=== PATIENT | female | born 1945 | race Caucasian/White ===

== ENCOUNTER 2019-06-04 12:34 | Observation (INO) | payer OTHER ==
[~2019-06-04] VITALS: Ht 154.9 cm; Wt 114.8 kg
[~2019-06-04 12:34] MED LIST: LISI-209 PO; PRO40 PO
[2019-06-04 12:46] VITALS: BP_SYST 110
--- NOTE | 2019-06-04 13:30 | NUR ---
Patient to ER bed 6 to gown for evaluation. Side rails up. Report given to Ara MANRIQUE.
--- NOTE | 2019-06-04 13:40 | NUR ---
pt arrived via BLS for worsening lower back pain. Pt does not report a fall or any other injury. Pt notmally ambulates w/ a walker, however, was naot able to today. Will continue to monitor
--- NOTE | 2019-06-04 13:46 | NUR ---
Patient transported to radiology via gurney, accompanied by independent trader.
--- NOTE | 2019-06-04 14:00 | NUR ---
pt returned back from radiology.
--- NOTE | 2019-06-04 14:15 | NUR ---
LILLY Hewitt at bedside examining patient.
[2019-06-04] MEDS ORDERED: NACL 0.9% 1,000 ML IV ONE ×2 (14:30→15:45)
[2019-06-04] MEDS ORDERED: MORPHINE 4 MG/ML INJ. SYRINGE IVP ONE (14:30)
--- NOTE | 2019-06-04 15:10 | NUR ---
# 24 gauge angiocath placed to left chest. Use of asceptic technique. Opsite placed over site. Blood return noted. Blood for lab drawn from site. Flushed with 10 cc of normal saline. No evidence of infiltration noted. Patient tolerated well.
--- NOTE | 2019-06-04 15:20 | NUR ---
urine sample obtained via straight cath and sent to lab
[2019-06-04 15:26] LABS: BILIRUBIN,URINE NEGATIVE (NEGATIVE); BLOOD, URINE 1+ (NEGATIVE); CLARITY/URINE HAZY (CLEAR); COLOR,URINE YELLOW (YELLOW); GLUCOSE,URINE NEGATIVE (NEGATIVE); KETONES,URINE TRACE (NEGATIVE); LEUKOCYTE ESTERASE ,URINE 1+ (NEGATIVE); NITRITE, URINE POSITIVE (NEGATIVE); PROTEIN URINE NEGATIVE (NEGATIVE); UROBILINOGEN,URINE 0.2 (0.2-1.0)
[2019-06-04 15:34] LABS: BASOPHILS # (AUTO) 0.1 K/uL (0.0-0.2); BASOPHILS % (AUTO) 0.8 % (0.0-2.0); EOSINOPHILS # (AUTO) 0.1 K/uL (0.0-0.4); EOSINOPHILS % (AUTO) 1.1 % (0.0-4.0); HEMATOCRIT 38.1 % (36-48); HEMOGLOBIN 12.4 g/dL (12.0-16.0); LYMPHOCYTES # (AUTO) 1.1 K/uL (1.0-5.5); LYMPHOCYTES % (AUTO) 15.9 % (20.5-51.5); MEAN CORPUSCULAR HEMOGLOBIN 32 pg (27-31); MEAN CORPUSCULAR HGB CONC 33 % (32-36); MEAN CORPUSCULAR VOLUME 98 fL (79.0-98.0); MONOCYTES # (AUTO) 0.7 K/uL (0.0-1.0); MONOCYTES % (AUTO) 10.5 % (1.7-9.3); NEUTROPHILS % (AUTO) 71.7 % (40.0-70.0); PLATELET COUNT (AUTO) 222 K/uL (130-430); RED BLOOD CELL COUNT(AUTO) 3.87 MIL/uL (4.2-6.2); RED CELL DISTRIBUTION WIDTH 14.8 % (9.0-15.0); WHITE BLOOD COUNT (AUTO) 6.9 K/uL (4.8-10.8)
[2019-06-04 15:54] LABS: BACTERIA,URINE MANY /HPF (None Seen); MUCUS,URINE None Seen /LPF (None Seen); WBC,URINE 20-50 /HPF (0-3)
[2019-06-04 16:02] LABS: ANION GAP 9 (5-15); CALCIUM 9.4 mg/dL (8.4-11.0); CHLORIDE 103 mmol/L (98-107); CREATININE 2.67 mg/dL (0.55-1.30); GLUCOSE 85 mg/dL (70-99); POTASSIUM 4.5 mmol/L (3.5-5.1); SODIUM SERUM 135 mmol/L (136-145); UREA NITROGEN, BLOOD 41 mg/dL (8-21)
--- NOTE | 2019-06-04 16:06 | NUR ---
Medicated the pt with Levaquin per MD order.
[2019-06-04 16:07] LABS: ALANINE AMINOTRANSFERASE 18 U/L (12-78); ASPARTATE AMINOTRANSFERASE 19 U/L (10-37); TOTAL BILIRUBIN 0.5 mg/dL (0.0-1.0)
[2019-06-04] MEDS ORDERED: iron PO (16:19)
[2019-06-04] MEDS ORDERED: HYDR-3111 PO (16:19)
[2019-06-04] MEDS ORDERED: ROPI0.252 PO (16:19)
[2019-06-04] MEDS ORDERED: IBUP-1969 PO (16:19)
[2019-06-04] MEDS ORDERED: MECL12.584 PO (16:19)
[2019-06-04] MEDS ORDERED: HYDR-3607 PO (16:19)
--- NOTE | 2019-06-04 16:19 | NUR ---
Medication reconciliation completed with information provided by patient. Any prior medication reconciliation on file was reviewed and corrected.
--- NOTE | 2019-06-04 16:24 | NUR ---
Patient will be admitted to care of Dr. Lowe. Admitted to Med Surg OBS. Will go to room 107-b. Belongings list completed. Summary report printed. Report will be given at bedside. IV is on the left chest 24g patent and infusing well. Bedside report given to Jace MANRIQUE.
--- NOTE | 2019-06-04 16:29 | NUR ---
ADMISSION NOTE Received patient from ER via leticia, received report from ROMEO MANRIQUE. Patient admitted with diagnosis of BACK/HIP PAIN. Patient oriented to hospital routine, call light, toileting and safety-patient verbalized understanding.
[2019-06-04] MEDS: NACL 0.9% 1,000 ML IV SCH ×2 (16:30→23:46)
[2019-06-04] MEDS ORDERED: ACETAMINOPHEN 325 MG TABLET PO PRN (16:30)
[2019-06-04] MEDS ORDERED: ONDANSETRON HCL 4 MG/2 ML VIAL IVP PRN (16:30)
[2019-06-04] MEDS ORDERED: MORPHINE 2 MG/ML INJ. SYRINGE IVP PRN (16:30)
[2019-06-04] MEDS ORDERED: METOCLOPRAMIDE HCL 10 MG/2 ML VIAL IVP PRN (16:30)
[2019-06-04 16:41] VITALS: BP_SYST 130
--- NOTE | 2019-06-04 16:50 | NUR ---
patient left for CT patient left for CT scan in stable condition.
--- NOTE | 2019-06-04 17:10 | NUR ---
patient returned patient returned from Ct in stable condition. patient connected to IV fluids, bolus from ER, 1st bag still infusing. no adverse side effects. Patient in stable condition.
--- NOTE | 2019-06-04 18:05 | NUR ---
Closing note patient sitting up in bed at this time, eating dinner, tolerating well. no nausea, no vomiting. No complaints of abdominal pain.
[2019-06-04 19:00] VITALS: BP_SYST 138
--- NOTE | 2019-06-04 19:00 | NUR ---
urine retention Patient complaining of urine retention, stated she is unable to go in bed george, and cannot get up. encouraged patient to use bedpan, patient stated I will not be able to go. Patient stated "i have been in the hospital before, and I just lock up and cannot pee in the bed george". Pageamparo OTT.
--- NOTE | 2019-06-04 19:02 | NUR ---
Paged Dr. Lowe, Dr. Herman is historic preservationist s/w [place]
--- NOTE | 2019-06-04 19:20 | NUR ---
called back dr. burrows stated Okay for patient to have bullock insertion if patient is unable to urinate.
[2019-06-05] MEDS: NACL 0.9% 1,000 ML IV SCH ×3 (00:07→01:50)
[2019-06-05 02:02] VITALS: BP_SYST 125
[2019-06-05] MEDS: MORPHINE 4 MG/ML INJ. SYRINGE IVP PRN ×4 (03:12→16:10)
--- NOTE | 2019-06-05 04:11 | NUR ---
CONSULT: CONSULT CALLED FOR DR. ZHOU I SPOKE WITH TRACEY AYALA REASON FOR CONSULT: HIP AND BACK PAIN REQUESTING CONSULT: DR. OMALLEY SOLUTION MAKER PHONE NUMBER: [phone]
[2019-06-05 07:02] LABS: BASOPHILS # (AUTO) 0.1 K/uL (0.0-0.2); BASOPHILS % (AUTO) 0.9 % (0.0-2.0); EOSINOPHILS # (AUTO) 0.2 K/uL (0.0-0.4); EOSINOPHILS % (AUTO) 3.5 % (0.0-4.0); HEMATOCRIT 34.3 % (36-48); HEMOGLOBIN 11.3 g/dL (12.0-16.0); MEAN CORPUSCULAR HEMOGLOBIN 33 pg (27-31); MEAN CORPUSCULAR HGB CONC 33 % (32-36); MEAN CORPUSCULAR VOLUME 99 fL (79.0-98.0); MONOCYTES # (AUTO) 0.7 K/uL (0.0-1.0); MONOCYTES % (AUTO) 11.6 % (1.7-9.3); PLATELET COUNT (AUTO) 189 K/uL (130-430); RED BLOOD CELL COUNT(AUTO) 3.46 MIL/uL (4.2-6.2); RED CELL DISTRIBUTION WIDTH 14.7 % (9.0-15.0); WHITE BLOOD COUNT (AUTO) 5.9 K/uL (4.8-10.8)
[2019-06-05 07:33] LABS: ALANINE AMINOTRANSFERASE 17 U/L (12-78); ALBUMIN 2.5 g/dL (3.4-4.8); ASPARTATE AMINOTRANSFERASE 20 U/L (10-37); CALCIUM 8.9 mg/dL (8.4-11.0); CHLORIDE 105 mmol/L (98-107); CREATININE 2.14 mg/dL (0.55-1.30); GLUCOSE 69 mg/dL (70-99); POTASSIUM 3.9 mmol/L (3.5-5.1); THYROID STIMULATING HORMONE 0.89 uIu/mL (0.36-3.74); TOTAL BILIRUBIN 0.6 mg/dL (0.0-1.0); UREA NITROGEN, BLOOD 35 mg/dL (8-21)
[2019-06-05 07:42] LABS: ANION GAP 7 (5-15); SODIUM SERUM 136 mmol/L (136-145)
[2019-06-05 08:18] VITALS: BP_SYST 131
--- NOTE | 2019-06-05 08:19 | NUR ---
AM ROUNDS: Oriented x4. Pain on bilat hips 10/10, medicated as ordered. Safety precautions in place. Call light within reach
--- NOTE | 2019-06-05 08:58 | NUR ---
Nutrition Update Efrem Scale 15 noted. Pt admitted for back and hip pain. Diet: regular, 2 gm Na, cardiac + regular, 2 gm Na (2 active, separate diet orders) BMI: 48 kg/m2 RD to follow per nutrition care standards.
[2019-06-05 09:30] VITALS: BP_SYST 130; BP_SYST 94
[2019-06-05 11:28] VITALS: BP_SYST 128
--- NOTE | 2019-06-05 11:51 | NUR ---
Premedication for therapy: PT is here to evaluate patient. Medicated patient with morphine 4 mg prior to therapy.
--- NOTE | 2019-06-05 11:59 | NUR ---
Physical Therapy order has been received and the chart reviewed. Patient reported 10/10 pain when attempting to elevate the head of the bed. RN was informed and will provide pain medication. Plan: Attempt the evaluation in 30-45 minutes.
--- NOTE | 2019-06-05 12:31 | NUR ---
SS Note: SS was referred to see pt due to pt living alone in a trailer with stairs and is unable to walk. INTERNATIONAL LOGISTICS MANAGER met with pt and verified demographic information, NOK and Person to Notify is Ana Donato @ [phone]. Pt is alert and oriented. Pt lives alone and is semi independent with ADL's. Pt is able to ambulate with walker assistance, and is able to prepare simple foods. Pt denies driving and stated she has her neighbors do the grocery shopping for her. Pt states she has not been out of the house for four years now but has a visiting nurse (Candida) that comes one time a week to prepare her medications and checks up on her. INTERNATIONAL LOGISTICS MANAGER asked how she feels about being home all the time, pt responded "I feel very comfortable at home and I don't mind at all". Pt states she does not have the home health information at this time, but it is ordered by her PCP, Dr. Elder. Pt states she has a reclining chair, a walker, shower chair and handicap handle bars throughout the house, but denies having a ramp to the front door but states she is looking into getting one. Pt states she has 6 steps to get to the front door. Pt states she has income from social security ($1422/month) and no additional income. Pt identifies her friend, Ana and some of her neighbors as her support system. Pt denies being depressed and anxious and denies any history of mental health. Pt is under the care of HCP, and is being discharged to SNF. INTERNATIONAL LOGISTICS MANAGER provided pt with Advanced Directive, POLST, correction booklet, and Senior Services. No further SS needs identified, but will remain available if needed.
--- NOTE | 2019-06-05 12:56 | NUR ---
Physical Therapy 2nd attempt for the evaluation was refused due to patient's continued complaint of severe bilateral hip pain. Informed RN and Dr. Lowe. Plan: attempt tomorrow.
[2019-06-05 15:31] VITALS: BP_SYST 130
--- NOTE | 2019-06-05 15:33 | NUR ---
Ambulance sisal picker set up: Ambulance sisal picker time at 1800 with [facility]. Spoke with Rahul. Patient is going to [facility] Room 214 A
--- NOTE | 2019-06-05 16:00 | NUR ---
Dietitian Recommendations * Continue cardiac diet. LP, RD Please refer to Nutrition Assessment for details. Signed: 06/05/19 at 1601 by Kelly MORGAN <Co-Signature Required> Co-Signed: 06/05/19 at [address] Addendum: 06/05/19 at 1601 by Kelly MORGAN Amended: Links added.
--- NOTE | 2019-06-05 17:37 | NUR ---
Report: Report given to STARLA Hanna. Patient is aware of the transfer.
[2019-06-05 20:00] VITALS: BP_SYST 153
--- NOTE | 2019-06-05 20:25 | NUR ---
[facility]SFER [facility] HERE TO TRANSFER PT AT THIS TIME TO [facility]. VSS, NO S/S OF ACUTE DISTRESS NOTED. PT DENIES ANY PAIN OR DISCOMFORT AT THIS TIME. ALL BELONGINGS SENT WITH PT. L CHEST 24G DISCONTINUED, CATHETER INTACT, NO S/S OF ACTIVE BLEEDING NOTED. REPORT GIVEN TO RECEIVING NURSE BY AM HILARIA.
== END 2019-06-05 20:25 ==
LOC: SED 12:34 → SMU 15:59
PROVIDERS: ADMIT Internal Medicine Hospice and Palliative Medicine; ATTEND Internal Medicine Hospice and Palliative Medicine
DX: M25.552 Pain in left hip (principal); M25.551 Pain in right hip; E66.01 Morbid (severe) obesity due to excess calories; I10 Essential (primary) hypertension; N39.0 Urinary tract infection, site not specified; M19.90 Unspecified osteoarthritis, unspecified site; N28.9 Disorder of kidney and ureter, unspecified; M54.9 Dorsalgia, unspecified; E86.0 Dehydration; G89.29 Other chronic pain; Z88.0 Allergy status to penicillin
CPT/HCPCS: 36415 ×2; 72110; 72192; 73521; 76770; 80053 ×2; 81000; 84443; 85025 ×2; 87040; 87086; 87186; 96361 ×3; 96365 ×2; 96375 ×2; 96376; 99285; G0378 ×2; J1956; J2270 ×2; J7030

== ENCOUNTER 2019-06-22 16:33 | Inpatient (IN) | payer OTHER ==
[~2019-06-22] VITALS: Ht 152.4 cm; Wt 107.0 kg
[~2019-06-22 16:33] MED LIST changes: +HYDR-3111 PO; +HYDR-3607 PO; -LISI-209 PO; +ROPI0.252 PO; +iron PO
[2019-06-22] MEDS ORDERED: MORPHINE 4 MG/ML INJ. SYRINGE IVP ONE (18:30)
[2019-06-22] MEDS ORDERED: NACL 0.9% 1,000 ML IV ONE (18:30)
[2019-06-22 19:49] LABS: BASOPHILS # (AUTO) 0.1 K/uL (0.0-0.2); BASOPHILS % (AUTO) 0.9 % (0.0-2.0); EOSINOPHILS # (AUTO) 0.1 K/uL (0.0-0.4); EOSINOPHILS % (AUTO) 1.2 % (0.0-4.0); HEMOGLOBIN 14.1 g/dL (12.0-16.0); LYMPHOCYTES # (AUTO) 1.1 K/uL (1.0-5.5); LYMPHOCYTES % (AUTO) 15.9 % (20.5-51.5); MEAN CORPUSCULAR HEMOGLOBIN 33 pg (27-31); MEAN CORPUSCULAR HGB CONC 34 % (32-36); MEAN CORPUSCULAR VOLUME 99 fL (79.0-98.0); MONOCYTES # (AUTO) 0.6 K/uL (0.0-1.0); PLATELET COUNT (AUTO) 286 K/uL (130-430); RED BLOOD CELL COUNT(AUTO) 4.26 MIL/uL (4.2-6.2); RED CELL DISTRIBUTION WIDTH 14.1 % (9.0-15.0); WHITE BLOOD COUNT (AUTO) 6.9 K/uL (4.8-10.8)
[2019-06-22 19:59] LABS: ANION GAP 8 (5-15); CALCIUM 11.1 mg/dL (8.4-11.0); CHLORIDE 100 mmol/L (98-107); CREATININE 2.01 mg/dL (0.55-1.30); GLUCOSE 100 mg/dL (70-99); POTASSIUM 4.1 mmol/L (3.5-5.1); SODIUM SERUM 133 mmol/L (136-145); UREA NITROGEN, BLOOD 23 mg/dL (8-21)
[2019-06-22 20:04] LABS: ALANINE AMINOTRANSFERASE 50 U/L (12-78); ALBUMIN 3.4 g/dL (3.4-4.8); ASPARTATE AMINOTRANSFERASE 35 U/L (10-37); TOTAL BILIRUBIN 0.4 mg/dL (0.0-1.0)
[2019-06-22 20:29] LABS: BLOOD, URINE NEGATIVE (NEGATIVE); CLARITY/URINE SL CLOUDY (CLEAR); COLOR,URINE YELLOW (YELLOW); GLUCOSE,URINE NEGATIVE (NEGATIVE); KETONES,URINE 1+ (NEGATIVE); LEUKOCYTE ESTERASE ,URINE NEGATIVE (NEGATIVE); NITRITE, URINE POSITIVE (NEGATIVE); PH,URINE 5.5 (5.0-8.0); PROTEIN URINE NEGATIVE (NEGATIVE); UROBILINOGEN,URINE 0.2 (0.2-1.0)
[2019-06-22 20:37] LABS: BILIRUBIN,URINE 1+ (NEGATIVE)
[2019-06-22 20:53] LABS: BACTERIA,URINE MANY /HPF (None Seen); MUCUS,URINE None Seen /LPF (None Seen); RBC,URINE 0-3 /HPF (0-3); WBC,URINE 0-3 /HPF (0-3)
[2019-06-22] MEDS ORDERED: NACL 0.9% 1,000 ML IV SCH (22:05)
[2019-06-22] MEDS ORDERED: ONDANSETRON HCL 4 MG/2 ML VIAL IVP PRN (22:15)
[2019-06-22] MEDS ORDERED: ACETAMINOPHEN 325 MG TABLET PO PRN (22:15)
[2019-06-22] MEDS ORDERED: ALBUTEROL SULFATE 0.083% 2.5 MG/3 ML VIAL.NEB INH PRN (22:15)
[2019-06-22] MEDS ORDERED: HYDROcodone/ACETAMIN 5-325 MG TAB (NORCO/ VICODIN) PO PRN (22:15)
[2019-06-22] MEDS ORDERED: LEVOFLOXACIN 500 MG/D5W 100 ML IV SCH (22:15)
[2019-06-22] MEDS ORDERED: DIPHENHYDRAMINE INJ 50 MG/ML VIAL IVP ONE (23:15)
[2019-06-23 00:35] VITALS: BP_SYST 121
[2019-06-23] MEDS ORDERED: LEVOFLOXACIN 500 MG/D5W 100 ML IV ONE (01:16)
[2019-06-23] MEDS: HYDROcodone/ACETAMIN 10-325 MG TAB PO PRN (02:06)
[2019-06-23 08:01] LABS: BASOPHILS # (AUTO) 0.1 K/uL (0.0-0.2); BASOPHILS % (AUTO) 1.3 % (0.0-2.0); EOSINOPHILS # (AUTO) 0.3 K/uL (0.0-0.4); EOSINOPHILS % (AUTO) 4.3 % (0.0-4.0); HEMATOCRIT 37.7 % (36-48); HEMOGLOBIN 12.5 g/dL (12.0-16.0); LYMPHOCYTES # (AUTO) 1.6 K/uL (1.0-5.5); MEAN CORPUSCULAR HEMOGLOBIN 33 pg (27-31); MEAN CORPUSCULAR HGB CONC 33 % (32-36); MEAN CORPUSCULAR VOLUME 98 fL (79.0-98.0); MONOCYTES # (AUTO) 0.8 K/uL (0.0-1.0); NEUTROPHILS # (AUTO) 3.2 K/uL (1.8-7.7); NEUTROPHILS % (AUTO) 54.4 % (40.0-70.0); PLATELET COUNT (AUTO) 229 K/uL (130-430); RED BLOOD CELL COUNT(AUTO) 3.85 MIL/uL (4.2-6.2); RED CELL DISTRIBUTION WIDTH 14.2 % (9.0-15.0); WHITE BLOOD COUNT (AUTO) 5.9 K/uL (4.8-10.8)
[2019-06-23 08:13] VITALS: BP_SYST 140
[2019-06-23 08:26] LABS: ALANINE AMINOTRANSFERASE 38 U/L (12-78); ALBUMIN 2.8 g/dL (3.4-4.8); ANION GAP 11 (5-15); ASPARTATE AMINOTRANSFERASE 31 U/L (10-37); CALCIUM 10.8 mg/dL (8.4-11.0); CHLORIDE 101 mmol/L (98-107); CREATININE 1.93 mg/dL (0.55-1.30); GLUCOSE 77 mg/dL (70-99); POTASSIUM 3.8 mmol/L (3.5-5.1); SODIUM SERUM 137 mmol/L (136-145); TOTAL BILIRUBIN 0.3 mg/dL (0.0-1.0); UREA NITROGEN, BLOOD 24 mg/dL (8-21)
[2019-06-23] MEDS: roPINIRole HCL 0.25 MG ( REQUIP )TABLET PO SCH ×3 (11:15→21:55)
[2019-06-23] MEDS: PANTOPRAZOLE SODIUM 40 MG TAB PO SCH (11:15)
[2019-06-23] MEDS: CALCITONIN SALMON,SYNTHETIC 3.7 ML SPRAY.PUMP NS SCH (11:19)
[2019-06-23 12:30] VITALS: BP_SYST 121
[2019-06-23 15:04] VITALS: BP_SYST 126
[2019-06-23 20:00] VITALS: BP_SYST 138
[2019-06-23] MEDS ORDERED: LEVOFLOXACIN 250 MG/D5W 50 ML IV SCH (22:00)
[2019-06-23 23:51] VITALS: BP_SYST 145
[2019-06-24 08:00] VITALS: BP_SYST 123
[2019-06-24 08:09] LABS: BASOPHILS % (AUTO) 0.9 % (0.0-2.0); EOSINOPHILS # (AUTO) 0.2 K/uL (0.0-0.4); EOSINOPHILS % (AUTO) 4.5 % (0.0-4.0); HEMATOCRIT 38.3 % (36-48); HEMOGLOBIN 12.9 g/dL (12.0-16.0); LYMPHOCYTES # (AUTO) 0.9 K/uL (1.0-5.5); LYMPHOCYTES % (AUTO) 16.8 % (20.5-51.5); MEAN CORPUSCULAR HEMOGLOBIN 33 pg (27-31); MEAN CORPUSCULAR HGB CONC 34 % (32-36); MEAN CORPUSCULAR VOLUME 99 fL (79.0-98.0); MONOCYTES # (AUTO) 0.5 K/uL (0.0-1.0); MONOCYTES % (AUTO) 10.7 % (1.7-9.3); NEUTROPHILS # (AUTO) 3.4 K/uL (1.8-7.7); NEUTROPHILS % (AUTO) 67.1 % (40.0-70.0); PLATELET COUNT (AUTO) 183 K/uL (130-430); RED BLOOD CELL COUNT(AUTO) 3.87 MIL/uL (4.2-6.2); RED CELL DISTRIBUTION WIDTH 13.8 % (9.0-15.0); WHITE BLOOD COUNT (AUTO) 5.1 K/uL (4.8-10.8)
[2019-06-24 08:44] LABS: ALANINE AMINOTRANSFERASE 33 U/L (12-78); ALBUMIN 2.8 g/dL (3.4-4.8); ASPARTATE AMINOTRANSFERASE 31 U/L (10-37); CALCIUM 10.8 mg/dL (8.4-11.0); CHLORIDE 101 mmol/L (98-107); CREATININE 1.65 mg/dL (0.55-1.30); GLUCOSE 78 mg/dL (70-99); POTASSIUM 3.6 mmol/L (3.5-5.1); SODIUM SERUM 137 mmol/L (136-145); TOTAL BILIRUBIN 0.5 mg/dL (0.0-1.0); UREA NITROGEN, BLOOD 23 mg/dL (8-21)
[2019-06-24 08:48] LABS: ANION GAP 14 (5-15)
[2019-06-24] MEDS: CALCITONIN SALMON,SYNTHETIC 3.7 ML SPRAY.PUMP NS SCH (09:00)
[2019-06-24] MEDS: roPINIRole HCL 0.25 MG ( REQUIP )TABLET PO SCH ×3 (10:11→20:32)
[2019-06-24] MEDS: PANTOPRAZOLE SODIUM 40 MG TAB PO SCH (10:11)
[2019-06-24 11:17] VITALS: BP_SYST 122
[2019-06-24 15:28] VITALS: BP_SYST 114
[2019-06-24] MEDS: HYDROcodone/ACETAMIN 10-325 MG TAB PO PRN (20:31)
[2019-06-25 00:11] VITALS: BP_SYST 115
[2019-06-25 08:20] VITALS: BP_SYST 124
[2019-06-25] MEDS: roPINIRole HCL 0.25 MG ( REQUIP )TABLET PO SCH ×2 (09:04→14:13)
[2019-06-25] MEDS: PANTOPRAZOLE SODIUM 40 MG TAB PO SCH (09:04)
[2019-06-25] MEDS: HYDROcodone/ACETAMIN 10-325 MG TAB PO PRN (09:05)
[2019-06-25] MEDS: CALCITONIN SALMON,SYNTHETIC 3.7 ML SPRAY.PUMP NS SCH (09:18)
[2019-06-25 12:29] VITALS: BP_SYST 118
[2019-06-25] MEDS ORDERED: CEFEPIME 1 GM in D5W 50 ML IV SCH (14:00)
[2019-06-25 14:35] VITALS: BP_SYST 122
[2019-06-25 14:59] VITALS: BP_SYST 122
== END 2019-06-25 15:00 | DRG 689 ==
LOC: SED 16:33 → SMU 21:27
PROVIDERS: ADMIT Internal Medicine Hospice and Palliative Medicine; ATTEND Internal Medicine Hospice and Palliative Medicine
DX: N39.0 Urinary tract infection, site not specified (principal); G93.41 Metabolic encephalopathy; Z16.23 Resistance to quinolones and fluoroquinolones; E87.1 Hypo-osmolality and hyponatremia; M46.26 Osteomyelitis of vertebra, lumbar region; N17.9 Acute kidney failure, unspecified; Z68.42 Body mass index [BMI] 45.0-49.9, adult; I10 Essential (primary) hypertension; M19.90 Unspecified osteoarthritis, unspecified site; B96.20 Unspecified Escherichia coli [E. coli] as the cause of diseases classified elsewhere; G89.29 Other chronic pain; E66.01 Morbid (severe) obesity due to excess calories; R62.7 Adult failure to thrive; Z82.49 Family history of ischemic heart disease and other diseases of the circulatory system; Z22.322 Carrier or suspected carrier of Methicillin resistant Staphylococcus aureus; Z78.9 Other specified health status; Z79.899 Other long term (current) drug therapy; Z99.3 Dependence on wheelchair; Z88.0 Allergy status to penicillin; Z90.49 Acquired absence of other specified parts of digestive tract; Z98.51 Tubal ligation status
CPT/HCPCS: 36415; 72148; 76770; 80053; 81000-TC; 83605; 84484; 85025; 85651-TC; 87040-TC; 87081; 87086; 87186-TC; 93005; 96374; 96375; 97110-GP; 97112-GP; 97530-GP; 99285; J0692; J1200; J1956; J2270; J7030; J7060

== ENCOUNTER 2019-06-29 17:33 | Inpatient (IN) | payer OTHER ==
[~2019-06-29] VITALS: Ht 157.5 cm; Wt 105.7 kg
[2019-06-29 17:33] VITALS: BP_SYST 151
[2019-06-29] MEDS ORDERED: MORPHINE 4 MG/ML INJ. SYRINGE IVP ONE (18:15)
[2019-06-29] MEDS ORDERED: ONDANSETRON HCL 4 MG/2 ML VIAL IVP ONE (18:15)
[2019-06-29] MEDS ORDERED: NACL 0.9% 1,000 ML IV ONE (18:45)
[2019-06-29 18:55] LABS: BASOPHILS # (AUTO) 0.1 K/uL (0.0-0.2); BASOPHILS % (AUTO) 0.8 % (0.0-2.0); EOSINOPHILS % (AUTO) 0.3 % (0.0-4.0); HEMATOCRIT 40.1 % (36-48); HEMOGLOBIN 13.5 g/dL (12.0-16.0); LYMPHOCYTES # (AUTO) 0.5 K/uL (1.0-5.5); LYMPHOCYTES % (AUTO) 6.5 % (20.5-51.5); MEAN CORPUSCULAR HEMOGLOBIN 33 pg (27-31); MEAN CORPUSCULAR HGB CONC 34 % (32-36); MEAN CORPUSCULAR VOLUME 98 fL (79.0-98.0); MONOCYTES # (AUTO) 0.8 K/uL (0.0-1.0); MONOCYTES % (AUTO) 10.8 % (1.7-9.3); NEUTROPHILS % (AUTO) 81.6 % (40.0-70.0); PLATELET COUNT (AUTO) 146 K/uL (130-430); RED BLOOD CELL COUNT(AUTO) 4.09 MIL/uL (4.2-6.2); RED CELL DISTRIBUTION WIDTH 13.7 % (9.0-15.0); WHITE BLOOD COUNT (AUTO) 7.4 K/uL (4.8-10.8)
[2019-06-29 19:07] LABS: ANION GAP 16 (5-15); CALCIUM 11.1 mg/dL (8.4-11.0); CHLORIDE 98 mmol/L (98-107); CREATININE 2.04 mg/dL (0.55-1.30); GLUCOSE 105 mg/dL (70-99); PROTHROMBIN TIME 10.3 SECS (9.5-12.5); SODIUM SERUM 133 mmol/L (136-145); UREA NITROGEN, BLOOD 18 mg/dL (8-21)
[2019-06-29 19:14] LABS: ALANINE AMINOTRANSFERASE 39 U/L (12-78); ALBUMIN 2.9 g/dL (3.4-4.8); ASPARTATE AMINOTRANSFERASE 34 U/L (10-37); C-REACTIVE PROTEIN QUANT 3.7 mg/dL (0-0.5); TOTAL BILIRUBIN 0.5 mg/dL (0.0-1.0); URIC ACID 10.4 mg/dL (2.4-7.0)
[2019-06-29 19:47] LABS: ERYTHROCYTE SEDIMENTATION RATE 17 MM/HR (0-20)
[2019-06-29 22:56] VITALS: BP_SYST 111
[2019-06-29] MEDS ORDERED: ONDANSETRON HCL 4 MG/2 ML VIAL IVP PRN (23:00)
[2019-06-29] MEDS ORDERED: HYDROcodone/ACETAMIN 10-325 MG TAB PO PRN (23:00)
[2019-06-29] MEDS ORDERED: ALBUTEROL SULFATE 0.083% 2.5 MG/3 ML VIAL.NEB INH PRN (23:00)
[2019-06-29] MEDS ORDERED: HYDROcodone/ACETAMIN 5-325 MG TAB (NORCO/ VICODIN) PO PRN (23:00)
[2019-06-29 23:01] VITALS: BP_SYST 135
[2019-06-30 02:52] VITALS: BP_SYST 118
[2019-06-30] MEDS: PANTOPRAZOLE SODIUM 40 MG TAB PO SCH (07:03)
[2019-06-30 07:14] LABS: BASOPHILS # (AUTO) 0.1 K/uL (0.0-0.2); BASOPHILS % (AUTO) 0.9 % (0.0-2.0); EOSINOPHILS # (AUTO) 0.1 K/uL (0.0-0.4); EOSINOPHILS % (AUTO) 1.2 % (0.0-4.0); HEMATOCRIT 37.5 % (36-48); LYMPHOCYTES % (AUTO) 16.9 % (20.5-51.5); MEAN CORPUSCULAR HEMOGLOBIN 34 pg (27-31); MEAN CORPUSCULAR HGB CONC 35 % (32-36); MEAN CORPUSCULAR VOLUME 97 fL (79.0-98.0); MONOCYTES # (AUTO) 0.9 K/uL (0.0-1.0); MONOCYTES % (AUTO) 14.9 % (1.7-9.3); NEUTROPHILS % (AUTO) 66.1 % (40.0-70.0); PLATELET COUNT (AUTO) 132 K/uL (130-430); RED BLOOD CELL COUNT(AUTO) 3.88 MIL/uL (4.2-6.2); RED CELL DISTRIBUTION WIDTH 13.6 % (9.0-15.0); WHITE BLOOD COUNT (AUTO) 6.1 K/uL (4.8-10.8)
[2019-06-30 07:48] LABS: ALANINE AMINOTRANSFERASE 36 U/L (12-78); ALBUMIN 2.7 g/dL (3.4-4.8); ANION GAP 9 (5-15); ASPARTATE AMINOTRANSFERASE 41 U/L (10-37); CALCIUM 10.7 mg/dL (8.4-11.0); CHLORIDE 98 mmol/L (98-107); CREATININE 1.77 mg/dL (0.55-1.30); GLUCOSE 67 mg/dL (70-99); POTASSIUM 3.8 mmol/L (3.5-5.1); SODIUM SERUM 134 mmol/L (136-145); TOTAL BILIRUBIN 0.3 mg/dL (0.0-1.0); UREA NITROGEN, BLOOD 20 mg/dL (8-21)
[2019-06-30 08:00] VITALS: BP_SYST 118
[2019-06-30] MEDS: roPINIRole HCL 0.25 MG ( REQUIP )TABLET PO SCH ×3 (08:23→20:01)
[2019-06-30] MEDS: ENOXAPARIN SODIUM 30 MG/0.3 ML SYRINGE SUBCUT SCH (08:26)
[2019-06-30 11:54] VITALS: BP_SYST 123
[2019-06-30 16:51] VITALS: BP_SYST 104
[2019-06-30 19:52] VITALS: BP_SYST 130
[2019-07-01 01:26] VITALS: BP_SYST 107
[2019-07-01] MEDS: PANTOPRAZOLE SODIUM 40 MG TAB PO SCH (06:36)
[2019-07-01 07:32] LABS: ALANINE AMINOTRANSFERASE 30 U/L (12-78); ALBUMIN 2.7 g/dL (3.4-4.8); ANION GAP 11 (5-15); ASPARTATE AMINOTRANSFERASE 37 U/L (10-37); CALCIUM 10.8 mg/dL (8.4-11.0); CHLORIDE 98 mmol/L (98-107); CREATININE 1.59 mg/dL (0.55-1.30); GLUCOSE 60 mg/dL (70-99); POTASSIUM 4.1 mmol/L (3.5-5.1); SODIUM SERUM 134 mmol/L (136-145); TOTAL BILIRUBIN 0.4 mg/dL (0.0-1.0); UREA NITROGEN, BLOOD 20 mg/dL (8-21)
[2019-07-01 07:34] LABS: BASOPHILS # (AUTO) 0.1 K/uL (0.0-0.2); BASOPHILS % (AUTO) 1.3 % (0.0-2.0); EOSINOPHILS # (AUTO) 0.2 K/uL (0.0-0.4); HEMATOCRIT 36.2 % (36-48); HEMOGLOBIN 12.1 g/dL (12.0-16.0); LYMPHOCYTES # (AUTO) 0.8 K/uL (1.0-5.5); LYMPHOCYTES % (AUTO) 17.6 % (20.5-51.5); MEAN CORPUSCULAR HEMOGLOBIN 33 pg (27-31); MEAN CORPUSCULAR HGB CONC 34 % (32-36); MEAN CORPUSCULAR VOLUME 98 fL (79.0-98.0); MONOCYTES # (AUTO) 0.8 K/uL (0.0-1.0); NEUTROPHILS # (AUTO) 2.9 K/uL (1.8-7.7); NEUTROPHILS % (AUTO) 61.1 % (40.0-70.0); PLATELET COUNT (AUTO) 120 K/uL (130-430); RED BLOOD CELL COUNT(AUTO) 3.71 MIL/uL (4.2-6.2); RED CELL DISTRIBUTION WIDTH 13.4 % (9.0-15.0); WHITE BLOOD COUNT (AUTO) 4.8 K/uL (4.8-10.8)
[2019-07-01 08:00] VITALS: BP_SYST 102
[2019-07-01] MEDS: ENOXAPARIN SODIUM 30 MG/0.3 ML SYRINGE SUBCUT SCH (10:57)
[2019-07-01] MEDS: roPINIRole HCL 0.25 MG ( REQUIP )TABLET PO SCH ×3 (11:01→21:00)
[2019-07-01 12:22] VITALS: BP_SYST 105
[2019-07-01 16:10] VITALS: BP_SYST 113
[2019-07-01 20:00] VITALS: BP_SYST 139
[2019-07-02] MEDS: PANTOPRAZOLE SODIUM 40 MG TAB PO SCH (06:34)
[2019-07-02 08:58] VITALS: BP_SYST 139
[2019-07-02] MEDS: ENOXAPARIN SODIUM 30 MG/0.3 ML SYRINGE SUBCUT SCH (09:00)
[2019-07-02] MEDS: roPINIRole HCL 0.25 MG ( REQUIP )TABLET PO SCH (10:08)
[2019-07-02 12:00] VITALS: BP_SYST 122
[2019-07-02 14:23] VITALS: BP_SYST 133
[2019-07-02 16:00] VITALS: BP_SYST 133
== END 2019-07-02 15:35 | DRG 640 ==
LOC: SED 17:33 → SMU 21:00 → OBSVTOIN 07-01 17:26 → SMU 07-01 20:01
PROVIDERS: ADMIT Internal Medicine Hospice and Palliative Medicine; ATTEND Internal Medicine Hospice and Palliative Medicine
DX: E87.1 Hypo-osmolality and hyponatremia (principal); N17.0 Acute kidney failure with tubular necrosis; Z68.41 Body mass index [BMI] 40.0-44.9, adult; E66.01 Morbid (severe) obesity due to excess calories; F32.9 Major depressive disorder, single episode, unspecified; M17.0 Bilateral primary osteoarthritis of knee; F41.9 Anxiety disorder, unspecified; I10 Essential (primary) hypertension; Y92.091 Bathroom in other non-institutional residence as the place of occurrence of the external cause; W18.2XXA Fall in (into) shower or empty bathtub, initial encounter; G89.29 Other chronic pain; Z60.2 Problems related to living alone; R73.9 Hyperglycemia, unspecified; Y99.8 Other external cause status; Y93.E1 Activity, personal bathing and showering; Z82.49 Family history of ischemic heart disease and other diseases of the circulatory system; Z88.0 Allergy status to penicillin; Z79.899 Other long term (current) drug therapy; Z90.49 Acquired absence of other specified parts of digestive tract; Z98.51 Tubal ligation status
CPT/HCPCS: 36415; 71045; 80053; 84484; 84550-TC; 85025; 85610-TC; 85651-TC; 85730-TC; 86140; 87081; 93005; 94010; 94760; 96361; 96374; 96375; 99285; G0378; J1650; J2270; J2405; J7030